=== PATIENT | male | born 1960 | race African-American/Black ===

== ENCOUNTER 2017-08-01 04:05 | Emergency (ER) | payer MEDICAID ==
[~2017-08-01] VITALS: Ht 175.3 cm; Wt 122.0 kg
[2017-08-01] MEDS: ONDANSETRON 4MG ODT PO ONE (07:43)
[2017-08-01] MEDS: ACETAMINOPHEN 650MG/20.3ML UDC PO ONE (07:43)
[2017-08-01 07:57] VITALS: BP 120/72
== END 2017-08-01 08:35 | disposition home or self-care (01) ==
LOC: EDSEX 04:05 → ER 04:05
DX: R10.13 Epigastric pain (principal); R11.2 Nausea with vomiting, unspecified; F12.10 Cannabis abuse, uncomplicated
CPT/HCPCS: 99283; Q0162; Z7610

== ENCOUNTER 2017-11-24 13:04 | Emergency (ER) | payer MEDICAID ==
[~2017-11-24] VITALS: Ht 177.8 cm; Wt 85.0 kg
[2017-11-24 15:15] VITALS: BP 111/75
== END 2017-11-24 16:53 | disposition left against medical advice (07) ==
LOC: ER 13:14
DX: F10.129 Alcohol abuse with intoxication, unspecified (principal); F12.10 Cannabis abuse, uncomplicated
CPT/HCPCS: 73030; 99284